=== PATIENT | male | born 1985 | race Caucasian/White ===

== ENCOUNTER 2021-11-05 19:00 | Emergency (ER) | payer MEDICAID ==
[~2021-11-05] VITALS: Ht 195.6 cm; Wt 120.5 kg
[2021-11-05 19:09] VITALS: BP 141/96
[2021-11-05] MEDS ORDERED: TETanus/Pertussis (Acell)/Diphther VAC/PF (Tdap-Adult) 0.5ml syringe IMVAC ONE (20:30)
[2021-11-05] MEDS ORDERED: bacitracin 15gm ointment TP ONE (20:30)
[2021-11-05] MEDS ORDERED: ondansetron 4mg rapidly disintigrating tab PO ONE (20:40)
[2021-11-05] MEDS ORDERED: amox tr/potassium clavulanate 875/125mg TAB PO ONE (20:40)
[2021-11-05] MEDS ORDERED: AMOX-115 PO (20:45)
== END 2021-11-05 21:22 | disposition home or self-care (01) ==
LOC: ER 19:00
DX: S61.411A Laceration without foreign body of right hand, initial encounter (principal); Z20.3 Contact with and (suspected) exposure to rabies; W54.0XXA Bitten by dog, initial encounter; Y93.89 Activity, other specified; Y92.89 Other specified places as the place of occurrence of the external cause; Y99.8 Other external cause status
CPT/HCPCS: 12001; 90471; 90715; 99284